=== PATIENT | female | born 1950 | race Caucasian/White ===

== ENCOUNTER → 2017-10-23 | Outpatient (CLI) | payer BC ==
[~2017-10-23] MED LIST: BILBERRY PO; EPP3 IM; FISHOIL PO; GLCSC500400; LYSINE PO
--- NOTE | 2017-10-23 13:35 | DIAGNOSTIC IMAGING REPORT ---
CHEST 2 VIEWS ROUTINE HISTORY: COUGH COMPARISON: Chest 11/21/2009. FINDINGS: The lungs are clear. Cardiac silhouette is normal in size. No pleural effusions. No pneumothorax. IMPRESSION: No acute process. Electronically signed by: Micah Chiang M.D. 10/23/2017 1:34 PM Dictated Date/Time: 10/23/2017 1:23 PM
== END | disposition home or self-care (01) ==
LOC: C.RAD 13:06
PROVIDERS: ATTEND Family Medicine
DX: R05 Cough (principal)

== ENCOUNTER → 2017-11-19 | Outpatient (CLI) | payer BC ==
--- NOTE | 2017-11-19 19:42 | DIAGNOSTIC IMAGING REPORT ---
R KNEE 1 OR 2 VIEWS ROUTINE HISTORY: 67 years-old Female ANTERIOR KNEE PAIN acute right knee pain COMPARISON: None available TECHNIQUE: 2 views of the right knee FINDINGS: Minimal tricompartmental degenerative changes with small joint effusion. Small corticated bone fragment is noted along the superior aspect of the patella at the quadriceps insertion site possibly reflecting a fragmented enthesophyte, 3 mm. No acute fracture or dislocation. No opaque foreign body. IMPRESSION: 1. Small joint effusion without acute fracture or dislocation. 2. Minimal tricompartmental degenerative changes. The above report was generated using voice recognition software. It may contain grammatical, syntax or spelling errors. Electronically signed by: Henrique Woo M.D. 11/19/2017 7:40 PM Dictated Date/Time: 11/19/2017 7:38 PM
[2017-11-19 20:11] LABS: LYME DISEASE AB IGG NEG (NEG)
[2017-11-19 20:13] LABS: LYME DISEASE AB IGM POS (NEG)
== END | disposition home or self-care (01) ==
LOC: C.RAD 18:52
PROVIDERS: ATTEND Family Medicine
DX: M25.461 Effusion, right knee (principal)

== ENCOUNTER → 2017-12-06 | Outpatient (CLI) | payer BC ==
--- NOTE | 2017-12-09 07:35 | MAMMOGRAPHY REPORT ---
BILATERAL DIGITAL SCREENING MAMMOGRAM TOMOSYNTHESIS WITH CAD: 12/06/2017 CLINICAL HISTORY: Routine screening. TECHNIQUE: Breast tomosynthesis in addition to standard 2D mammography was performed. Current study was also evaluated with a Computer Aided Detection (CAD) system. COMPARISON: Comparison is made to exams dated: 04/27/2015 mammogram, 01/18/2014 mammogram, 03/15/2011 m ammogram, 11/09/2009 mammogram - [facility], 12/23/2008, and 12/08/2007. BREAST COMPOSITION: There are scattered areas of fibroglandular density in both breasts. FINDINGS: No suspicious masses, calcifications, or areas of architectural distortion are noted in ei ther breast. There has been no significant interval change compared to prior exams. There are stabl e postsurgical changes in the right central breast. A benign intramammary lymph node is again noted in the right upper outer quadrant. IMPRESSION: ACR BI-RADS CATEGORY 2: BENIGN There is no mammographic evidence of malignancy. A 1 year screening mammogram is recommended. The pa tient will receive written notification of the results. Approximately 10% of breast cancers are not detected with mammography. A negative mammographic report should not delay biopsy if a clinically suggestive mass is present. Dana Garcia M.D. ah/:12/06/2017 15:01:29 Arranger Assembler: Rodri ECHEVERRIA)(M), [facility] letter sent: Normal 1/2 BI-RADS Code: ACR BI-RADS Category 2: Benign
== END | disposition home or self-care (01) ==
LOC: C.MAMM 14:29
PROVIDERS: ATTEND Family Medicine
DX: Z12.31 Encounter for screening mammogram for malignant neoplasm of breast (principal)

== ENCOUNTER → 2017-12-10 | Outpatient (CLI) | payer BC ==
--- NOTE | 2017-12-10 16:28 | DIAGNOSTIC IMAGING REPORT ---
MRI OF THE RIGHT KNEE CLINICAL HISTORY: Right knee pain. COMPARISON STUDY: Radiographs of the right knee dated 11/19/2017. TECHNIQUE: MRI of the right knee was performed utilizing proton density, T1, and T2-weighted sequences in the axial, sagittal, coronal planes. IV contrast was not administered for this examination. FINDINGS: Menisci: There is maceration with extensive tearing seen involving the anterior horn and body of the lateral meniscus. This is best seen on coronal image #14. Mild overlying soft tissue edema is noted. No flipped fragment is identified. The medial meniscus appears intact. Ligaments: The anterior and posterior cruciate ligaments are intact. The medial and lateral collateral ligaments are within normal limits. Extensor mechanism: The extensor mechanism is intact. There is mild soft tissue edema around the patellar tendon both superficially and within Hoffa's fat pad. 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 Mild subchondral marrow edema is observed. There is no MRI evidence of fracture. There is only mild thinning of the articular cartilage along the weightbearing surface in the medial and lateral compartments. Tiny marginal osteophytes are noted. Joint effusion: There is trace joint fluid. Soft tissues: There is atrophy of the regional musculature. No intramuscular edema is identified. IMPRESSION: 1. There is edema identified around the insertion of the patellar tendon suggesting jumper's knee. Clinical correlation will be required. 2. There is complex tearing/maceration involving the anterior horn and body of the lateral meniscus. 3. The medial meniscus, the cruciate ligaments, and the collateral ligament are preserved. 4. Chondromalacia patella as above. Electronically signed by: Israel Mc M.D. 12/10/2017 4:27 PM Dictated Date/Time: 12/10/2017 4:21 PM
== END | disposition home or self-care (01) ==
LOC: C.MRIBC 15:10
DX: M25.561 Pain in right knee (principal); M72.2 Plantar fascial fibromatosis; G57.62 Lesion of plantar nerve, left lower limb

== ENCOUNTER → 2017-12-12 | Outpatient (CLI) | payer BC | END | disposition home or self-care (01) | LOC: C.CPL 13:55 | DX: S83.271A Complex tear of lateral meniscus, current injury, right knee, initial encounter (principal); X58.XXXA Exposure to other specified factors, initial encounter ==